=== PATIENT | female | born 1960 | race African-American/Black ===

== ENCOUNTER 2016-08-27 16:28 | Observation (INO) | payer OTHER ==
--- NOTE | ~2016-08-27 | EKG ---
PATIENT: ANGEL GUILLERMO UNIT #: [id number] Ventricular Rate: 81 BPM Atrial Rate: 81 BPM P-R Interval: 162 ms QRS Duration: 70 ms Q-T Interval: 358 ms QTC Calculation(Bezet): 415 ms P Provencal: 200 degrees Calculated R Provencal: -14 degrees Calculated T Provencal: -4 degrees Diagnosis Line: Unusual P axis, possible ectopic atrial rhythm Diagnosis Line: Low voltage QRS Diagnosis Line: Nonspecific T wave abnormality Diagnosis Line: Abnormal ECG Diagnosis Line: No previous ECGs available Diagnosis Line: Confirmed by JAX AGUERO MD ([id number]) on Diagnosis Line: 08/29/2016 7:56:44 AM INTERPRETING MD: LACI AYOUB
--- NOTE | ~2016-08-27 | DS ---
Unit #: [id number] #: [id number] Patient: ANGEL GUILLERMO [id number] [address] [address] [id number] I MR#: [id number] NAME: ANGEL GUILLERMO ROOM: 576 Age: 56 Sex: F Admission Date: 08/27/2016 : 1960 Discharge Date: 08/28/2016 Attending Physician: Luis Driscoll M.D. Primary Care Physician: Vickey Page M.D. DISCHARGE SUMMARY ADMITTING DIAGNOSES 1. Chest pain, tachycardia. 2. Diabetes mellitus. 3. Hypertension. 4. Hyperlipidemia. 5. Family history of premature coronary artery disease. DISCHARGE DIAGNOSES 1. Chest pain, tachycardia, resolved. 2. Diabetes mellitus. 3. Hypertension. 4. Hyperlipidemia. 5. Family history of premature coronary artery disease. PROCEDURE PERFORMED 1. She had a stress Cardiolite on 08/28/2016. Dictated report is pending. Verbal report from Dr. Noel is that there is no infarction or ischemia. 2. 2D echo Doppler on 08/28/2016. Verbal report from Dr. Noel is normal LV function with pulmonary insufficiency and no other valvular abnormalities noted. Also, mild concentric LVH. HOSPITAL COURSE The patient is a 56-year-old -[place] female with a history of diabetes mellitus, hypertension, hyperlipidemia, who presented to the emergency department with complaints of chest pain. Myocardial infarction was ruled out with serial troponins and EKGs. The patient had the stress Cardiolite and 2D echo Doppler as mentioned above. She did have an elevated D-dimer and CT of the chest showed no PE and also no aortic dissection or aneurysm. The patient did also report some symptoms suggestive of obstructive sleep apnea and Dr. Schneider has been asked to see the patient to set up an outpatient sleep study prior to her leaving the hospital. At the time of discharge, she is without complaints of chest pain or tachycardia. DISCHARGE MEDICATIONS 1. Metformin 500 mg b.i.d. 2. Welchol, continue home dose. 3. Lopressor 12.5 mg q. a.m. 4. Lisinopril 2.5 mg daily. 5. Aspirin 81 mg daily. Unit #: [id number] #: [id number] Patient: ANGEL GUILLERMO. Augmentin 875 mg twice daily. Ms. Guillermo will be discharged home. She will follow up with her primary care physician within the next two to four weeks. She will have an outpatient sleep study set up with Dr. Schneider. Dictated by... Raúl Grijalva for Edgar Noel M.D. CMG/rafael TD: 08/28/2016 12:53 JOB #: [id number] DISCHARGE SUMMARY Page 1 of 1 X X DISCHARGE SUMMARY
--- NOTE | ~2016-08-27 | HP ---
Unit #: [id number] #: [id number] Patient: ANGEL GUILLERMO [id number] [address] [place], [place] [address] [id number] I MR#: [id number] NAME: ANGEL GUILLERMO ROOM: 576 Age: 56 Sex: F Admission Date: 08/27/2016 : 1960 Attending Physician: Luis Driscoll M.D. Primary Care Physician: Vickey Page M.D. HISTORY AND PHYSICAL CHIEF COMPLAINT Chest pain. HISTORY OF PRESENT ILLNESS The patient is a 56-year-old female with history of diabetes mellitus, hypertension and hyperlipidemia who presented to the emergency department with complaints of chest pain. She states that the chest discomfort actually started on Thursday while at her sister's house. She states that this occurred at rest. She describes the pain as a pressure in the center of her chest. She also has associated shortness of air, dizziness and some nausea. She states the pain lasted several hours and then subsequently subsided. The pain then returned yesterday while working. She went to her primary care physician after working, who referred her on to the emergency department. Again, the pain was substernal, described as a pressure and lasting several hours. She did notice an increase in the pain with deep inspiration. There was nausea but no sweating associated. She has received nitro paste, which she feels has helped her chest discomfort. Two-D echo Doppler from 04/29/2012 showed an ejection fraction of 55%, mild concentric LVH, trace mitral regurgitation and trace tricuspid regurgitation. PAST MEDICAL HISTORY 1. Diabetes mellitus type 2. 2. Hypertension. 3. Hyperlipidemia. PAST SURGICAL HISTORY Hysterectomy and tubal ligation. HOME MEDICATIONS 1. Glucophage 500 mg b.i.d. 2. Zestril 2.5 mg daily. 3. Lopressor 12.5 mg q.a.m. 4. Welchol, unknown dose. 5. Aspirin 81 mg daily. 6. Augmentin 875 mg b.i.d. ALLERGIES Codeine. SOCIAL HISTORY She does not smoke and has never smoked. She denies alcohol use or illicit drug use. She is and lives at home with her . She works at [employer] in housekeeping. Unit #: [id number] #: [id number] Patient: ANGEL GUILLERMO FAMILY HISTORY Her sister had coronary artery disease with stents placed in her 40s. Mother also had heart disease, but the details are unknown. REVIEW OF SYSTEMS GENERAL: She denies recent fevers, chills or flu-like symptoms. SKIN: Denies rashes or hives. HEENT: No headache, vision loss, hearing loss, epistaxis or dysphagia. PULMONARY: No cough, hemoptysis or wheezing. CARDIAC: Occasional tachycardia and chest pain as discussed above. No orthopnea or PND. ABDOMEN: Nausea, as discussed above. No abdominal pain, diarrhea or melena. : No hematuria. EXTREMITIES: No swelling or claudication. NEUROLOGIC: Dizziness, as discussed above. Also, near syncope but no syncope. PHYSICAL EXAMINATION VITAL SIGNS: Blood pressure is 132/71, heart rate 76 and regular, respirations 19 and regular, temperature 97.8 and O2 sat 100% on room air. GENERAL: The patient is a well-developed, well-nourished female in no acute distress. Awake, oriented x3. SKIN: No rashes or hives. HEENT: Head is normocephalic, atraumatic. There are no xanthelasmas. Oral mucosa is pink and moist. NECK: No JVD or carotid bruits. SPINE: No kyphosis or scoliosis. CHEST: Clear to auscultation bilaterally without wheezes, rhonchi, rales or accessory muscle use. CORONARY: Regular rate and rhythm without murmur, gallop, rub or lift. ABDOMEN: Soft, nontender, nondistended. Positive bowel sounds x4. The abdominal pulsation is not enlarged. EXTREMITIES: No clubbing, cyanosis or edema. CURRENT LABS AND TESTS LABS: White blood cells 5.2, hemoglobin 11.6, hematocrit 35.7, platelets 270. Sodium 138, potassium 3.9, chloride 103, CO2 26, BUN 12, creatinine 0.7, glucose 109. D-dimer 604. Troponin less than 0.05 at 2016 hours, less than 0.03 at 12:15 a.m., less than 0.03 at 6:25 a.m. CARDIOVASCULAR: EKG shows normal sinus rhythm with low voltage QRS. IMAGING: CT of the chest showed no PE. There was no evidence of aortic aneurysm or dissection. There was minimal atelectasis in the lungs. ASSESSMENT AND PLAN 1. Chest pain. 2. Diabetes mellitus type 2. 3. Hypertension. 4. Dyslipidemia. 5. Positive family history of premature coronary artery disease. Ms. Guillermo's case was discussed with Dr. Edgar Noel. We will perform a stress Cardiolite and echocardiogram, and further recommendations will follow. Unit #: [id number] #: [id number] Patient: ANGEL GUILLERMO Dictated by Sonia GrijalvaAKulwinder. for Edgar Noel M.D. MADDI/carmine TD: 08/28/2016 10:00 JOB #: [id number] HISTORY AND PHYSICAL Page 1 of 1 X X HISTORY AND PHYSICAL
--- NOTE | ~2016-08-27 | CT16 ---
[facility] A Service of [facility] & [facility] RADIOLOGY TEXT RESULTS PATIENT: ANGEL GUILLERMO LOCATION: [id number] : 56 UNIT #: [id number] AGE: [address]: Luis Driscoll MD SEX: F ORDER DR: [id number] [facility] [address]. [place], [place] [address] [id number] I MR#: [id number] Acc #: [id number] NAME: ANGEL GUILLERMO. : 1960 SEX: F STUDY DATE/TIME: 08/27/2016 21:07 UNIT: CEDOF ROOM: 57965 STUDY DESCRIPTION: CT Angio Chest for PE Attending Physician: Luis Driscoll M.D. Ordering Physician: Rony Esteban D.O. Primary Care Physician: Vickey Page M.D. MEDICAL IMAGING REPORT This report is preliminary unless electronic signature is present EXAM CT angiography chest for PE, 08/27/2016 HISTORY D-dimer 604 08/27/2016 at 1716 hours, chest pain, dizziness since last p.m. 08/26/2016. TECHNIQUE CT pulmonary angiography performed with intravenous administration 100 mL Isovue-370. Three-dimensional reconstructions performed through pulmonary arteries. Comparison 07/23/2007. This CT exam was performed with one or more of the following radiation dose reduction techniques: Automatic exposure control, adjustment of mA and/or kV according to patient size, and iterative reconstruction. FINDINGS Thyroid unremarkable. No axillary, mediastinal or hilar adenopathy. Heart normal in size. No pleural effusions. Liver shows tiny, subcentimeter probable cyst in the right hepatic lobe. Otherwise unremarkable. Gallbladder, spleen, pancreas, adrenal glands, kidneys notable for a tiny subcentimeter fatty focus in the upper pole of the left kidney. No change. Probable small angiomyolipoma. No upper abdominal adenopathy. Esophagus, stomach, visualized segments of small bowel unremarkable. Moderate stool burden in visualized colon without pathologic dilatation. Probably physiologic. Correlate with any clinical signs or symptoms of constipation. Pulmonary parenchyma shows mild central bronchiectasis, more pronounced in the lower lobes. No bronchial wall thickening and no mucous plugging. Similar appearance on prior study. There is no clear indication of acute pulmonary disease. There is no suspicious nodule. The pulmonary arteries are well opacified. No PE. No evidence of aortic aneurysm or dissection. [facility]. [facility] A Service of [facility] RADIOLOGY TEXT RESULTS PATIENT: ANGEL GUILLERMO LOCATION: [place] [address] : 56 UNIT #: [id number] AGE: [address]: Luis Driscoll MD SEX: F ORDER DR: Visualized aortic branch vessels are patent. Bony structures show mild degenerative change. No acute-appearing bony abnormality. IMPRESSION 1. No PE. 2. No evidence of aortic aneurysm or dissection. The visualized aortic branch vessels are patent. 3. Minimal dependent atelectasis in the lungs. No significant acute pulmonary disease. No pleural effusion, pneumothorax or suspicious nodule. 4. No acute-appearing abnormality in the visualized upper abdomen. There is moderate stool burden in the visualized colon, probably physiologic in nature. There is no pathologic colonic dilatation suggested. Correlate clinically for any signs or symptoms of constipation. Please see remainder of incidental findings in body of report above. Dictated by... Monty Sethi M.D. THIS IS AN ELECTRONICALLY VERIFIED REPORT Monty Sethi M.D. at 08/28/2016 4:47 PM Shira TD: 08/27/2016 23:34 JOB #: [id number] MEDICAL IMAGING REPORT Page 1 of 1 COPY
--- NOTE | ~2016-08-27 | ST ---
Unit #: [id number] #: [id number] Patient: ANGEL GUILLERMO [id number] [address] [address] [id number] I MR#: [id number] NAME: ANGEL GUILLERMO : 1960 SEX: F STUDY DATE/TIME: 08/28/2016 UNIT: [facility] ROOM: 576 STUDY DESCRIPTION: Stress test Attending Physician: Luis Driscoll M.D. Primary Care Physician: Vickey Page M.D. CARDIOLOGY REPORT EXAM Stress test. FINDINGS Result text under nuclear order number. Please see this order for result text. Dictated by... Eve Beltrán/zaida TD: 08/28/2016 12:50 JOB #: [id number] CARDIOLOGY REPORT Page 1 of 1 X Edgar Noel MD CARDIOLOGY REPORT
--- NOTE | ~2016-08-27 | TH ---
Unit #: [id number] #: [id number] Patient: ANGEL GUILLERMO [id number] [address] [address] [id number] I MR#: [id number] NAME: ANGEL GUILLERMO. : 1960 SEX: F STUDY DATE/TIME: 08/28/2016 UNIT: [facility] ROOM: 576 STUDY DESCRIPTION: Stress nuclear study Attending Physician: Luis Driscoll M.D. Primary Care Physician: Vickey Page M.D. CARDIOLOGY REPORT EXAM Stress nuclear and ECG combined. INDICATION Chest pain. SUMMARY The patient exercised on a Juan José protocol to maximal effort. Tc-99 Cardiolite, 10.34 and 3.8 mCi, was injected at rest and stress respectively. Appropriate views were obtained. FINDINGS Resting ECG was normal. With stress, there was mild chest discomfort up to grade 7/10, when heart rate was 139. ECG at this time only showed 0.[address] depression, horizontal. The patient completed 7 minutes and 29 seconds of exercise. Heart rate increased from 67 to 141 (87%) and blood pressure increased 135/81 to 170/84. Perfusion study showed chest wall and breast attenuation artifact but, otherwise, normal perfusion both at rest and stress. There is significant intestinal artifact at rest mainly. Planar images show no significant patient motion at rest or stress. There is no significant lung uptake, LV or RV enlargement. Summed stress score is 6. Summed difference score is 6. Changes involve primarily border detection at the base. Gated perfusion wall motion analysis demonstrates end-diastolic volume 55 mL. Ejection fraction is 67%. IMPRESSION 1. Moderate deconditioning based on the patient's age. 2. Normal heart rate and blood pressure responses. 3. Probably normal stress ECG despite the chest pain with stress, maximum 0.[address] depression. 4. Normal stress nuclear study with no ischemia or infarction. 5. Normal wall motion with excellent ejection fraction. 6. False abnormal summed stress scores. Dictated by... Edgar Noel M.D. MARQUITA/zaida Unit #: [id number] #: [id number] Patient: ANGEL GUILLERMO TD: 08/28/2016 12:45 JOB #: [id number] CARDIOLOGY REPORT Page 1 of 1 X Edgar Noel MD CARDIOLOGY REPORT
[~2016-08-27 16:28] MED LIST: ACETAMINOPHEN PO; AMOXICILLIN PO; ASPIRIN81 M1 PO; ASPIRINEC PO; AUGMENTIN875 MG PO; BIAXIN PO; KETOPROFEN PO; LIPITOR PO; LISINOPRIL PO; LOPRESSOR PO; METFORMIN PO; NEXIUM PO; WELCHOL625 MG PO
[2016-08-27 17:53] LABS: BASOPHIL% 0.7 % (0-2.5); EOSINOPHIL# 0.2 X10e3 (0-0.7); EOSINOPHIL% 3.8 % (0.0-7.0); HEMATOCRIT 35.7 % (35.0-45.0); HEMOGLOBIN 11.6 gm/dL (12.0-16.0); LYMPHOCYTE# 2.8 X10e3 (1.0-3.5); LYMPHOCYTE% 54.1 % (17.0-45.0); MEAN CELL VOLUME 86.4 FL (83-96); MEAN CORPUSCULAR HGB CONC 32.5 g/dL (30-36); MEAN PLATELET VOLUME 7.8 FL (6.5-11.5); MONOCYTE# 0.3 X10e3 (0-1.0); MONOCYTE% 5.7 % (3.0-12.0); NEUTROPHIL# 1.9 X10e3 (1.5-7.1); NEUTROPHIL% 35.7 % (40-75); PLATELET COUNT 270 X10e3 (140-420); RED BLOOD COUNT 4.13 X10e (3.90-5.30); RED CELL DISTRIBUTION WIDTH 13.3 % (11.0-15.5); WHITE BLOOD COUNT 5.2 X10e3 (4.0-10.5)
[2016-08-27 17:54] LABS: DIFF IND YES
[2016-08-27 18:12] LABS: PLATELET ESTIMATE NORMAL (NORMAL)
[2016-08-27 18:13] LABS: ALBUMIN SERUM 4.7 g/dL (3.5-5.0); ALKALINE PHOSPHATASE 57 U/L (32-92); ALT (SGPT) 19 U/L (10-40); AST (SGOT) 24 U/L (10-42); BILIRUBIN,TOTAL 0.8 mg/dL (0.2-2.0); BLOOD UREA NITROGEN 12 mg/dL (9-23); BUN/CREATININE RATIO 17.14; CALCIUM SERUM 9.5 mg/dL (8.4-10.2); CARBON DIOXIDE 26 mmol/L (22-31); CHLORIDE 103 mmol/L (100-111); CREATININE SERUM 0.7 mg/dL (0.6-1.4); GLOM FILT RATE Estimated 110.7 mL/min (>60); GLUCOSE FASTING 109 mg/dL (70-110); POTASSIUM 3.9 mmol/L (3.5-5.1); PROTEIN TOTAL SERUM 7.6 g/dL (6.0-8.3); SODIUM 138 mmol/L (135-145)
[2016-08-27 18:14] LABS: BILIRUBIN, DIRECT <0.1 mg/dL (0.0-0.2); BILIRUBIN,INDIRECT 0.7 mg/dL (0.0-0.9)
[2016-08-27 19:49] LABS: POC - CKMB 1.2 ng/mL (0.0-7.9); POC - TROPONIN <0.05 ng/mL (<=0.05)
[2016-08-27 20:15] LABS: POC - CKMB <1.0 ng/mL (0.0-7.9); POC - TROPONIN <0.05 ng/mL (<=0.05)
[2016-08-28 10:17] LABS: CHOLESTEROL 121 mg/dL (0-200); HDL CHOLESTEROL 42 mg/dL (35-95); LDL CHOLESTEROL 58 mg/dL (-130); LDL/HDL RATIO 1 RATIO (0-4); TRIGLYCERIDES 106 mg/dL (10-160)
== END 2016-08-28 17:03 | disposition home or self-care (01) | DRG 313 ==
LOC: CED 16:28 → C5C 22:45 → CEDOF 22:45 → CED 23:02 → CEDOF 23:02 → C5C 08-28 00:02 → CEDOF 08-28 00:02 → C5C 08-28 00:10
PROVIDERS: Emergency Medicine; Internal Medicine Cardiovascular Disease
DX: R07.9 Chest pain, unspecified (principal); E11.9 Type 2 diabetes mellitus without complications; Z79.84 Long term (current) use of oral hypoglycemic drugs; I10 Essential (primary) hypertension; E78.5 Hyperlipidemia, unspecified; J98.11 Atelectasis; K63.9 Disease of intestine, unspecified; Z82.49 Family history of ischemic heart disease and other diseases of the circulatory system; Z79.899 Other long term (current) drug therapy; Z79.82 Long term (current) use of aspirin; Z88.5 Allergy status to narcotic agent; Z90.710 Acquired absence of both cervix and uterus; Z98.51 Tubal ligation status
CPT/HCPCS: 36415; 71275; 78452; 80048; 80061; 80076; 82553; 82947; 83036; 84443; 84484; 85025; 85379; 93005; 93017; 93306; 99285; A9500; G0378; Q9967